=== PATIENT | male | born 1990 | race Caucasian/White ===

== ENCOUNTER 2016-10-15 20:08 | Emergency (ER) | payer OTHER ==
[~2016-10-15 20:08] MED LIST: BENTYL20 MG PO; DIAZEPAM PO; LORTAB 7.51 TAB 7.5/ PO; MOTRIN100 MG PO; NAPROSYN500 MG PO; NAPROXEN PO; NO MEDICATIONS; NORFLEX100 MG PO; PRILOSEC PO; ROBAXIN500 MG PO
== END 2016-10-15 20:33 | disposition home or self-care (01) ==
LOC: SED 20:08
DX: G56.03 Carpal tunnel syndrome, bilateral upper limbs (principal); I10 Essential (primary) hypertension
CPT/HCPCS: 29125; 99283

== ENCOUNTER 2016-12-16 14:08 | Emergency (ER) | payer OTHER ==
[2016-12-16 14:53] LABS: BASOPHIL# 0.1 X10e3 (0-0.3); BASOPHIL% 0.9 % (0-2.5); EOSINOPHIL# 0.2 X10e3 (0-0.7); HEMATOCRIT 41.9 % (38.0-50.0); HEMOGLOBIN 14.4 gm/dL (13.0-16.0); LYMPHOCYTE# 2.3 X10e3 (1.0-3.5); LYMPHOCYTE% 20.9 % (17.0-45.0); MEAN CELL VOLUME 84.3 FL (83-96); MEAN CORPUSCULAR HEMOGLOBIN 28.8 PG (28-34); MEAN CORPUSCULAR HGB CONC 34.2 g/dL (30-36); MEAN PLATELET VOLUME 9.3 FL (6.5-11.5); MONOCYTE# 0.6 X10e3 (0-1.0); MONOCYTE% 5.4 % (3.0-12.0); NEUTROPHIL# 7.8 X10e3 (1.5-7.1); NEUTROPHIL% 70.8 % (40-75); PLATELET COUNT 298 X10e3 (140-420); RED BLOOD COUNT 4.98 X10e (3.90-5.60)
[2016-12-16 14:56] LABS: DIFF IND NO
[2016-12-16 15:20] LABS: ALBUMIN SERUM 3.7 g/dL (3.5-5.0); BILIRUBIN, DIRECT 0.1 mg/dL (0.0-0.2); BILIRUBIN,INDIRECT 0.7 mg/dL (0.0-0.9); BILIRUBIN,TOTAL 0.8 mg/dL (0.2-2.0); CALCIUM SERUM 9.1 mg/dL (8.4-10.2); GLOM FILT RATE Estimated 103.4 mL/min (>60); POTASSIUM 3.5 mmol/L (3.5-5.1); PROTEIN TOTAL SERUM 7.3 g/dL (6.0-8.3)
== END 2016-12-16 16:29 | disposition home or self-care (01) ==
LOC: SED 14:08
PROVIDERS: Emergency Medicine
DX: R10.84 Generalized abdominal pain (principal)
CPT/HCPCS: 36415; 80048; 80076; 82150; 83690; 85025; 96361; 96374; 96375; 99284; J1885; J2405

== ENCOUNTER 2016-12-28 13:28 | Emergency (ER) | payer OTHER | END 2016-12-28 15:45 | disposition home or self-care (01) | LOC: SED 13:28 | DX: H16.133 Photokeratitis, bilateral (principal); Z23 Encounter for immunization | CPT/HCPCS: 90471; 90715; 99283 ==